=== PATIENT | male | born 1995 | race Caucasian/White ===

== ENCOUNTER 2017-03-02 11:21 | Emergency (ER) | payer OTHER ==
[~2017-03-02] VITALS: Ht 182.9 cm; Wt 85.7 kg
[2017-03-02 11:23] VITALS: TEMP 36.3; Ht 182.9 cm; Wt 85.7 kg
[2017-03-02] MEDS ORDERED: TRAZ50TA35 PO (12:05)
[2017-03-02] MEDS ORDERED: DOXY100C76 PO (12:05)
[2017-03-02] MEDS ORDERED: ALBUT/IPRATROP 3MG/0.5MG NEB 3 ML VIAL INH ONE (12:15)
[2017-03-02 12:25] VITALS: O2SAT 98
[2017-03-02 12:42] LABS: BASO % 0.4 %; BASO ABS # 0.03 K/uL (0-0.2); COMPLETE YES; HEMATOCRIT 44.4 % (42-52); IG% 0.3 %; LYMPH % 35.4 %; LYMPH ABS # 2.62 K/uL (1.2-3.4); MEAN CELL VOLUME 87.2 fL (80-100); MEAN CORPUSCULAR HEMOGLOBIN 30.1 pg (25-34); MEAN CORPUSCULAR HGB CONC 34.5 g/dl (32-36); MEAN PLATELET VOLUME 8.7 fL (7.4-10.4); MONO % 6.9 %; PLATELET COUNT 253 K/uL (130-400); RED BLOOD COUNT 5.09 M/uL (4.7-6.1)
--- NOTE | 2017-03-02 12:57 | EMERGENCY ROOM VISIT NOTE ---
History Report prepared by Ava: Brionna Mabry Under the Supervision of: Dr. Tarik Barger M.D. First contact with patient: 12:01 Chief Complaint: COUGH Stated Complaint: HEAVY COUGH WITH BLOOD IN VOMIT AND MUCUS Nursing Triage Summary: Went to walk in clinic yesterday for cold/cough x2 weeks, gave him doxycycline which he started yesterday. Last night started vomiting with mucousy blood. Pt reports coughing up white sputum. 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 He notes waking up to a coughing fit and vomiting in the middle of the night. He notes the vomitus had blood in it. He also reports epistaxis this morning. He notes that he has been having cold like symptoms for three weeks and went to an urgent clinic yesterday , which prescribed him Doxycycline and trazodone. He has been blowing his nose more frequently than normal. He notes that he has taken the Doxycycline with food. He reports rhinorrhea and abdominal pain, which he contributes to emesis. He currently rates his pain a 7/10 in severity. He has a history of gastric bleeding and intestinal bleeding due to an allergic reaction to Penicillin. He regularly uses an e-cigarette vapor device. Source of History: patient Onset: three weeks CAT SITTER Symptom Intensity: 7/10 Quality: other (cough) Timing: constant Associated Symptoms: + cough, + vomiting, + abdominal pain Note: He notes epistaxis, rhinorrhea, Review of Systems See HPI for pertinent positives & negatives. A total of 10 systems reviewed and were otherwise negative. Past Medical & Surgical Medical Problems: (1) Gastric bleeding (2) Intestinal bleeding Family History Diabetes mellitus FH: HTN (hypertension) FH: cancer FH: heart disease FH: kidney disease FH: lung cancer FH: seizures Social History Smoking Status: Current Every Day Smoker Alcohol Use: occasionally Marital Status: single Housing Status: lives alone Occupation Status: student Current/Historical Medications Scheduled Azithromycin (Zithromax), 250 MG PO DAILY Doxycycline Monohydrate (Monodox), 100 MG PO BID Trazodone Hcl (Trazodone), 50 MG PO HS Scheduled PRN Hydrocodone W/ Homatropine (Hycodan 5/1.5MG 5 Ml), 5 ML PO HS PRN for Cough Allergies Coded Allergies: Penicillins (Unverified Allergy, Unknown, ., 03/02/17) Physical Exam Vital Signs Date Time Temp Pulse Resp B/P (MAP) Pulse Ox O2 Delivery O2 Flow Rate FiO2 03/02/17 14:06 99 22 99 Room Air 03/02/17 14:05 68 16 120/68 99 03/02/17 12:54 62 03/02/17 12:35 68 17 130/77 99 Room Air 03/02/17 12:25 98 Room Air 03/02/17 11:23 36.3 80 18 127/84 97 Room Air 03/02/17 11:23 97 Room Air Physical Exam GENERAL: Patient is a healthy-appearing well-nourished young male. HEAD: Normocephalic atraumatic EYES: Ocular movements intact pupils equal and react to light OROPHARYNX mucous membranes are moist no exudates present no erythema or edema present NECK: Supple no nuchal rigidity CHEST: Good equal expansion LUNGS: Clear and equal to auscultation CARDIAC: Normal S1 and S2 ABDOMEN: Soft nontender no guarding BACK: No CVA tenderness EXTREMITIES: No pain upon palpation normal muscle strength in all groups no clubbing cyanosis or edema NEURO: Patient is following commands and answering questions appropriately. Alert and oriented x3 Cranial Nerves 2-12 grossly intact Medical Decision & Procedures ER Provider Diagnostic Interpretation: Radiology results as stated below per my review and radiologist interpretation: CHEST ONE VIEW PORTABLE CLINICAL HISTORY: Pt c/o cough dyspnea COMPARISON STUDY: None FINDINGS: The bones soft tissues and hemidiaphragms are normal. The cardiomediastinal silhouette is normal. The lungs are clear. The pulmonary vasculature is normal. IMPRESSION: Negative chest. The above report was generated using voice recognition software. It may contain grammatical, syntax or spelling errors. Electronically signed by: Thony Moore M.D. 03/02/2017 12:56 PM Dictated Date/Time: 03/02/2017 12:55 PM Laboratory Results 03/02/17 12:20 Red Blood Count 5.09, Mean Corpuscular Volume 87.2, Mean Corpuscular Hemoglobin 30.1, Mean Corpuscular Hemoglobin Concent 34.5, Mean Platelet Volume 8.7, Neutrophils (%) (Auto) 55.0, Lymphocytes (%) (Auto) 35.4, Monocytes (%) (Auto) 6.9, Eosinophils (%) (Auto) 2.0, Basophils (%) (Auto) 0.4, Neutrophils # (Auto) 4.07, Lymphocytes # (Auto) 2.62, Monocytes # (Auto) 0.51, Eosinophils # (Auto) 0.15, Basophils # (Auto) 0.03 03/02/17 12:20 Test 03/02/17 12:20 White Blood Count 7.40 K/uL (4.8-10.8) Red Blood Count 5.09 M/uL (4.7-6.1) Hemoglobin 15.3 g/dL (14.0-18.0) Hematocrit 44.4 % (42-52) Mean Corpuscular Volume 87.2 fL (80-100) Mean Corpuscular Hemoglobin 30.1 pg (25-34) Mean Corpuscular Hemoglobin Concent 34.5 g/dl (32-36) Platelet Count 253 K/uL (130-400) Mean Platelet Volume 8.7 fL (7.4-10.4) Neutrophils (%) (Auto) 55.0 % Lymphocytes (%) (Auto) 35.4 % Monocytes (%) (Auto) 6.9 % Eosinophils (%) (Auto) 2.0 % Basophils (%) (Auto) 0.4 % Neutrophils # (Auto) 4.07 K/uL (1.4-6.5) Lymphocytes # (Auto) 2.62 K/uL (1.2-3.4) Monocytes # (Auto) 0.51 K/uL (0.11-0.59) Eosinophils # (Auto) 0.15 K/uL (0-0.5) Basophils # (Auto) 0.03 K/uL (0-0.2) RDW Standard Deviation 40.6 fL (36.4-46.3) RDW Coefficient of Variation 12.6 % (11.5-14.5) Immature Granulocyte % (Auto) 0.3 % Immature Granulocyte # (Auto) 0.02 K/uL (0.00-0.02) Anion Gap 4.0 mmol/L (3-11) Est Creatinine Clear Calc Drug Dose 165.8 ml/min Estimated GFR () > 150.0 Estimated GFR (Non- 129.9 BUN/Creatinine Ratio 11.8 (10-20) Calcium Level 9.0 mg/dl (8.5-10.1) Total Bilirubin 0.5 mg/dl (0.2-1) Direct Bilirubin 0.1 mg/dl (0-0.2) Aspartate Amino Transf (AST/SGOT) 15 U/L (15-37) Alanine Aminotransferase (ALT/SGPT) 24 U/L (12-78) Alkaline Phosphatase 68 U/L (45-117) Total Protein 7.8 gm/dl (6.4-8.2) Albumin 3.7 gm/dl (3.4-5.0) Monoscreen NEG (NEG) Influenza Type A (RT-PCR) Neg for Influ A (NEG) Influenza Type A Antigen Neg for Influ A (NEG) Influenza Type B Antigen Neg for Influ B (NEG) Influenza Type B (RT-PCR) Neg for Influ B (NEG) Labs reviewed by ED physician. Medications Administered Medications (Trade) Dose Ordered Sig/Nay Route Start Time Stop Time Status Last Admin Dose Admin Albuterol/ Ipratropium (Duoneb) 12 ml ONE ONCE INH 03/02/17 12:15 03/02/17 12:16 DC 03/02/17 12:15 12 ML Albuterol (Ventolin Hfa Inhaler) 2 puffs NOW STAT INH 03/02/17 13:08 03/02/17 13:09 DC 03/02/17 13:47 2 PUFFS Azithromycin (Zithromax Tab) 500 mg NOW STAT PO 03/02/17 13:39 03/02/17 13:40 DC 03/02/17 13:47 500 MG ED Course 1201: Past medical records reviewed. The patient was evaluated in room B4B. A complete history and physical examination was performed. 1215: Ordered Duoneb 12 ml INH 1308: Ordered Albuterol 2 puffs INH 1339: Ordered Zithromax 500 mg PO 1336: I reassessed the patient at this time. He is feeling better and resting comfortably. I discussed the results and treatment plan with the patient. I answered all pertaining questions that he had. He expressed understanding and verbalized agreement. The patient will be discharged home. Medical Decision Prior records/ancillary studies reviewed. Triage Nursing notes reviewed. Additional history obtained from the family. The patient's history was concerning for respiratory difficulties. Differential diagnosis: Etiologies such as infections, reactive airway disease, pneumonia, pneumothorax , COPD, CHF, cardiac ischemia, pulmonary embolism, musculoskeletal, gastrointestinal, as well as others were entertained. This is a 22-year-old male who presents emergency department complaining of severe coughing and vomiting. I stressed the fact that the patient needs to be taking food with his doxycycline as I believe this may of what caused his vomiting. In addition serial abdominal examinations were performed on the patient in the emergency department and at no time did the patient exhibited a surgical abdomen or even abdominal tenderness. I also discussed the patient's risk of PE. I will note he is not tachycardic, hypoxic has not been in any long car trips and has no family history of a PE therefore I feel he is low risk. He was given a breathing treatment in the emergency department. Repeat examination revealed improvement patient's symptoms. He is flu negative, mono negative. I do feel the patient is suffering from bronchitis. I offered to change the patient's antibiotic to azithromycin which the patient was in agreement with. He was also given an inhaler to use twice every 6 hours. Medication Reconcilliation Current Medication List: was personally reviewed by me Blood Pressure Screening Patient's blood pressure: Normal blood pressure Impression Primary Impression: Acute bronchitis Scribe Attestation The scribe's documentation has been prepared under my direction and personally reviewed by me in its entirety. I confirm that the note above accurately reflects all work, treatment, procedures, and medical decision making performed by me. Departure Information Dispostion Home / Self-Care Prescriptions Hydrocodone W/ Homatropine (HYCODAN 5/1.5MG 5 ML) 1 Syp Syp 5 ML PO HS Y for Cough, #120 ML Prov: Tarik Barger MD 03/02/17 Azithromycin (ZITHROMAX) 250 Mg Tab 250 MG PO DAILY, #4 TAB Prov: Tarik Barger MD 03/02/17 Referrals Pino Welsh D.OConor (PCP) Forms HOME CARE DOCUMENTATION FORM, IMPORTANT VISIT INFORMATION, School Instructions, Work Instructions Patient Instructions Bronchitis Acute, My [facility] Additional Instructions Use inhaler twice every 6 hours Use hycodan before bed You received narcotic or benzodiazepene medication while in the emergency room today. This is an addictive medication that may cause drowziness as well as constipation. Do not drive, operate heavy machinery, or drink alcohol under the influence of this medication. Problem Qualifiers Primary Impression: Acute bronchitis Bronchitis organism: unspecified organism Qualified Codes: J20.9 - Acute bronchitis, unspecified
[2017-03-02 12:58] LABS: ALT/SGPT 24 U/L (12-78); BLOOD UREA NITROGEN 9 mg/dl (7-18); BUN/CREATININE RATIO 11.8 (10-20); CARBON DIOXIDE 29 mmol/L (21-32); CHLORIDE 107 mmol/L (98-107); CREATININE 0.78 mg/dl (0.60-1.40); GLUCOSE 85 mg/dl (70-99); POTASSIUM 4.4 mmol/L (3.5-5.1); SODIUM 140 mmol/L (136-145)
[2017-03-02 13:01] LABS: ALKALINE PHOSPHATASE 68 U/L (45-117); AST/SGOT 15 U/L (15-37)
[2017-03-02] MEDS ORDERED: ALBUTEROL HFA 8 GM INHALER INH STA (13:08)
[2017-03-02] MEDS ORDERED: AZITHROMYCIN 250 MG TAB PO STA (13:39)
[2017-03-02] MEDS ORDERED: HYDR5SYP11 PO (13:42)
[2017-03-02] MEDS ORDERED: AZIT-60 PO (13:42)
[2017-03-02 14:05] VITALS: BP 120/68
[2017-03-02 14:06] VITALS: PULSE 99; O2SAT 99
[2017-03-02 14:32] LABS: INFLUENZA A PCR Neg for Influ A (NEG); INFLUENZA B PCR Neg for Influ B (NEG)
== END 2017-03-02 14:09 | disposition home or self-care (01) ==
LOC: C.EDB 11:23
DX: J20.9 Acute bronchitis, unspecified (principal); R11.10 Vomiting, unspecified; F17.200 Nicotine dependence, unspecified, uncomplicated; Z83.3 Family history of diabetes mellitus; Z82.49 Family history of ischemic heart disease and other diseases of the circulatory system; Z80.1 Family history of malignant neoplasm of trachea, bronchus and lung; Z82.0 Family history of epilepsy and other diseases of the nervous system